=== PATIENT | female | born 1945 | race Caucasian/White ===

== ENCOUNTER 2018-01-27 13:05 | Inpatient (IN) | payer MEDICARE, BC ==
[2018-01-27] MEDS ORDERED: NITROGLYCERIN 0.4 MG TAB SL PRN (16:56)
[2018-01-27] MEDS ORDERED: APAP/HYDROCODONE 325/5 TAB PO PRN (16:56)
[2018-01-27] MEDS: APAP/HYDROCODONE 325/5 TAB PO PRN ×2 (18:25→23:50)
[2018-01-27] MEDS: METOPROLOL SUCCINATE 50 MG ER TAB PO SCH (21:48)
[2018-01-28] MEDS: LEVOTHYROXINE SODIUM 50 MCG TAB PO SCH (06:12)
[2018-01-28] MEDS ORDERED: METOPROLOL SUCCINATE 50 MG ER TAB PO SCH (09:00)
[2018-01-28] MEDS: LISINOPRIL 20 MG TAB PO SCH (09:07)
[2018-01-28] MEDS: AMLODIPINE 5 MG TAB PO SCH (09:07)
[2018-01-28] MEDS: ALLOPURINOL 100 MG TAB PO SCH (09:07)
[2018-01-28] MEDS: APAP/HYDROCODONE 325/5 TAB PO PRN (09:08)
[2018-01-28] MEDS ORDERED: MAGNESIUM HYDROXIDE 30 ML SUS PO PRN (09:30)
[2018-01-28] MEDS: POLYETHYLENE GLYCOL 17 GM/1 TBS PDS PO SCH (10:02)
[2018-01-28] MEDS: METFORMIN HYDROCHLORIDE 500 MG TAB PO SCH ×2 (10:03→20:59)
[2018-01-28] MEDS: METOPROLOL SUCCINATE 50 MG ER TAB PO SCH (20:59)
[2018-01-29] MEDS: LEVOTHYROXINE SODIUM 50 MCG TAB PO SCH (06:10)
[2018-01-29] MEDS: METFORMIN HYDROCHLORIDE 500 MG TAB PO SCH ×2 (08:07→20:05)
[2018-01-29] MEDS: LISINOPRIL 20 MG TAB PO SCH (08:08)
[2018-01-29] MEDS: AMLODIPINE 5 MG TAB PO SCH (08:08)
[2018-01-29] MEDS: ALLOPURINOL 100 MG TAB PO SCH (08:08)
[2018-01-29] MEDS: POLYETHYLENE GLYCOL 17 GM/1 TBS PDS PO SCH (08:13)
[2018-01-29] MEDS: METOPROLOL SUCCINATE 50 MG ER TAB PO SCH (20:05)
[2018-01-30] MEDS: LEVOTHYROXINE SODIUM 50 MCG TAB PO SCH (06:40)
[2018-01-30 08:08] VITALS: BP 129/78; PULSE 76; TEMP 98.9; O2SAT 98
[2018-01-30 08:53] VITALS: RESP 18
[2018-01-30] MEDS: METFORMIN HYDROCHLORIDE 500 MG TAB PO SCH (08:53)
[2018-01-30] MEDS: LISINOPRIL 20 MG TAB PO SCH (08:54)
[2018-01-30] MEDS: AMLODIPINE 5 MG TAB PO SCH (08:54)
[2018-01-30] MEDS: ALLOPURINOL 100 MG TAB PO SCH (08:54)
[2018-01-30] MEDS: POLYETHYLENE GLYCOL 17 GM/1 TBS PDS PO SCH (08:57)
== END 2018-01-30 10:00 | disposition home or self-care (01) | DRG 561 ==
LOC: ACUTE CARE 15:01 → UNDOADMIN 15:01
PROVIDERS: ADMIT Family Medicine; ATTEND Family Medicine
PROC: F01ZDFZ Gait and/or Balance Assessment using Assistive, Adaptive, Supportive or Protective Equipment (ICD-10-PCS; principal; 2018-01-27)
PROC: F01ZBZZ Bed Mobility Assessment (ICD-10-PCS; 2018-01-27)
PROC: F01ZCZZ Transfer Assessment (ICD-10-PCS; 2018-01-27)
PROC: F01L5ZZ Range of Motion and Joint Integrity Assessment of Musculoskeletal System - Lower Back / Lower Extremity (ICD-10-PCS; 2018-01-27)
PROC: F01K5ZZ Range of Motion and Joint Integrity Assessment of Musculoskeletal System - Upper Back / Upper Extremity (ICD-10-PCS; 2018-01-27)
DX: Z47.89 Encounter for other orthopedic aftercare (principal); E11.9 Type 2 diabetes mellitus without complications; Z98.1 Arthrodesis status; I10 Essential (primary) hypertension; K59.00 Constipation, unspecified; M10.9 Gout, unspecified
CPT/HCPCS: 82962; A6219; A6402; A9270-GY

== ENCOUNTER 2018-07-08 09:32 | Emergency (ER) | payer MEDICARE, BC ==
[2018-07-08 09:46] VITALS: BP 141/96; PULSE 103; RESP 18; TEMP 97.8; O2SAT 97
[2018-07-08 10:04] LABS: APPEARANCE,URINE Slightly Cloudy; BILIRUBIN,URINE NEGATIVE (NEGATIVE); COLOR,URINE Dark yellow; GLUCOSE, URINE (UA) NEGATIVE (NEGATIVE); KETONES,URINE NEGATIVE (NEGATIVE); LEUKOCYTE ESTERASE ,URINE TRACE (NEGATIVE); NITRATE,URINE NEGATIVE (NEGATIVE); OCCULT BLOOD,URINE 2+ (NEG-TRACE); PH,URINE 5.5
[2018-07-08 10:13] LABS: BASOPHILS % (AUTO) 1 % (0-3); EOSINOPHILS % (AUTO) 1 % (0-9); HEMATOCRIT 49 % (35-47); HEMOGLOBIN 15.7 gm/dl (12.0-15.5); LYMPHOCYTES % (AUTO) 16.6 % (10-50); MEAN CORPUSCULAR HEMOGLOBIN 28.9 pg (27.0-32.0); MEAN CORPUSCULAR HGB CONC 32.1 gm/dl (32.0-36.0); MEAN CORPUSCULAR VOLUME 90 fL (81-99); MONOCYTES % (AUTO) 10.4 % (0-12); NEUTROPHILS % (AUTO) 71.6 % (37-80)
[2018-07-08] MEDS ORDERED: ONDANSETRON HCL 4 MG/2 ML SOL IV ONE (10:22)
[2018-07-08 10:23] LABS: BACTERIA 2+ (< 1+); CRYSTALS NEGATIVE (0-3 AVE/HPF); EPITHELIAL CELLS 0-1 (SQUAMOUS); RBC,URINE 80-100 (0-3AV/HPF); WBC,URINE 0-2 (0-5AV/HPF)
[2018-07-08 10:25] LABS: ALBUMIN 4.1 gm/dl (3.4-5.0); BILIRUBIN,TOTAL 0.7 mg/dl (0.2-1.0); CALCIUM 9.4 mg/dl (8.5-10.1); CARBON DIOXIDE 24.7 mEq/L (21-32); CREATININE 1.37 mg/dl (0.60-1.00); POTASSIUM 3.9 mMol/L (3.5-5.1); TOTAL PROTEIN 8.2 gm/dl (6.4-8.2)
[2018-07-08] MEDS ORDERED: FENTANYL 100MCG/2ML SOL IV ONE (10:25)
[2018-07-08] MEDS ORDERED: FENTANYL 100MCG/2ML SOL ONE (11:01)
[2018-07-08] MEDS ORDERED: ONDANSETRON HCL 4 MG/2 ML SOL ONE (11:02)
== END 2018-07-08 13:13 | disposition home or self-care (01) | DRG 694 ==
LOC: ED 09:32
DX: N13.2 Hydronephrosis with renal and ureteral calculous obstruction (principal); N28.82 Megaloureter
CPT/HCPCS: 74176; 80053; 81001; 85025; 87088; 96374; 96375; 99283; 99284; J2405; J3010

== ENCOUNTER 2019-04-13 13:02 | Outpatient (CLI) | payer BC, MEDICARE | END 2019-04-13 13:03 | disposition home or self-care (01) | LOC: CONVCARE 13:02 ==